=== PATIENT | female | born 1990 | race Caucasian/White ===

== ENCOUNTER 2017-11-12 08:56 | Day surgery (SDC) | payer BC ==
[~2017-11-12 08:56] MED LIST: IOHEXOL 300 MG/ML 100ML VIAL.; LIDOCAINE 1% PF 2 ML VIAL. ID; MORPHINE SULFATE 4 MG/ML DISP.SYRIN. IV; ONDANSETRON PF 4 MG/2 ML VIAL. IV; PROCHLORPERAZINE 10 MG/2 ML VIAL. IV; SURGICEL HEMOSTAT 4X8 EACH.; fentaNYL PF VIAL 100 MCG/2 ML VIAL IV
[2017-11-12] MEDS: IV RINGERS,LACTATED 1000ML 1,000 ML IV (09:29)
[2017-11-12 09:38] LABS: NEG OBC UR NEG; POS OBC UR POS; U PREG PATIENT NEGATIVE (NEG)
[2017-11-12] MEDS ORDERED: ONDANSETRON PF 4 MG/2 ML VIAL. (09:59)
[2017-11-12] MEDS ORDERED: LIDOCAINE 2% PF Vial for OR 5 ML VIAL. (09:59)
[2017-11-12] MEDS ORDERED: PROPOFOL 20 ML IV (09:59)
[2017-11-12] MEDS ORDERED: DEXAMETHASONE SOD PHOS 20 MG/5 ML VIAL. (09:59)
[2017-11-12] MEDS ORDERED: MIDAZOLAM HCL/PF 2 MG/2 ML VIAL. (10:00)
[2017-11-12] MEDS ORDERED: fentaNYL PF VIAL 100 MCG/2 ML VIAL ×2 (10:00→11:30)
[2017-11-12] MEDS ORDERED: SUCCINYLCHOLINE 200 MG/10 ML VIAL. (10:00)
[2017-11-12] MEDS ORDERED: ROCURONIUM 50 MG/5 ML VIAL. (10:00)
[2017-11-12] MEDS ORDERED: SEVOFLURANE 31 TO 60 MINUTES. IH (10:04)
[2017-11-12] MEDS: BUPIVACAINE-EPI 0.25%-1:200000 50 ML VIAL. (10:52)
[2017-11-12] MEDS ORDERED: GLYCOPYRROLATE 1 MG/5 ML VIAL. (11:10)
[2017-11-12] MEDS ORDERED: NEOSTIGMINE METHYLSULFATE 5 MG/5 ML SYRINGE. (11:10)
[2017-11-12] MEDS ORDERED: KETOROLAC 30 MG/ML INJ FOR OR. INJ (11:16)
[2017-11-12] MEDS: fentaNYL PF VIAL 100 MCG/2 ML VIAL IV ×4 (11:42→12:01)
[2017-11-12] MEDS ORDERED: ceFAZolin 2GM PREMIX 2 GM/50 ML BAG IV (12:00)
[2017-11-12] MEDS: HYDROmorphone 2 MG/ML VIAL IV ×4 (12:06→12:37)
[2017-11-12] MEDS ORDERED: oxyCODONE/APAP 5/325 1 TAB TABLET PO (12:15)
[2017-11-12] MEDS: oxyCODONE/APAP 5/325 1 TAB TABLET PO (12:30)
== END 2017-11-12 13:10 | disposition home or self-care (01) ==
LOC: SURG 08:56
DX: K81.1 Chronic cholecystitis (principal); K21.9 Gastro-esophageal reflux disease without esophagitis; F41.9 Anxiety disorder, unspecified; F17.210 Nicotine dependence, cigarettes, uncomplicated; K08.409 Partial loss of teeth, unspecified cause, unspecified class; Z83.3 Family history of diabetes mellitus; Z79.899 Other long term (current) drug therapy
CPT/HCPCS: 47562; 81025; 88304; A7015; J0330; J0690; J0780; J1100; J1170; J1885; J2250; J2405; J2704; J2710; J3010; J3490; J7030; J7120; Q9967